=== PATIENT | female | born 1945 | race Caucasian/White ===

== ENCOUNTER → 2017-09-11 | Outpatient (CLI) | payer MEDICARE, BC ==
[~2017-09-11] MED LIST: AMLO1TAB78 PO; ANAS1TAB35 PO; ASCO-188 PO; BONIVA PO; CHOL400T55; DEN60I SUBQ; DIAZ-308 PO; GLUC-232 PO; HYDR-4309 PO; IBAN150T6 PO; MULT-1176 PO; ORP100 PO; RABE20TA33 PO
--- NOTE | 2017-09-11 10:33 | RADIOLOGY IMAGING REPORT ---
FACILITY: [facility] PATIENT NAME: Erica Howell : 1945 MR: [id number] V: [id number] EXAM DATE: ORDERING PHYSICIAN: RUTH COOPER TECHNOLOGIST: [place] [facility] [place] : 1945 Visit/Account:[id number] Date of Sevice: 09/11/2017 DEXA Scan HISTORY: Postmenopausal osteoporosis. COMPARISON: 2001, 2009, 2011, 2014 and 09/10/2016. HIP: Bone mineral density (BMD) measured in the left femoral neck region correlates with a Z-score of -0.8 and a T-score of -2.4 which is compatible with osteopenia as defined by the World Health Organizatio n. The corresponding risk of fracture in the hip is increased 4-6 times compared with a young adult reference population. This value in the total hip has decreased by 0.7 % since the prior study. More than 5% change is considered significant. Bone mineral density (BMD) measured in the left Femoral Neck region measures 0.711 g/cm2. HIP: Bone mineral density (BMD) measured in the right femoral neck region correlates with a Z-score of -1. 4 and a T-score of -3.0 which is compatible with osteoporosis as defined by the World Health Organiza tion. The corresponding risk of fracture in the hip is increased 8 times compared with a young adult reference population. This value in the total hip has decreased by 1.2 % since the prior study. Mor e than 5% change is considered significant. Bone mineral density (BMD) measured in the right Femoral Neck region measures 0.619 g/cm2. IMPRESSION: 1. Left Femoral Neck: Compatible with osteopenia. There has been no significant change in the bone mineral density since the previous exam. 3. Left Femoral Neck: Bone Mineral Density is 0.711 g/cm2 4. Right Femoral Neck: Compatible with osteoporosis. There has been no significant change in the b one mineral density since the previous exam. 5. Right Femoral Neck: Bone Mineral Density is 0.619 g/cm2 The next DEXA scan of this patient should include the following sites: Bilateral hips. FRAX? WHO Fracture Risk Assessment Tool link: <http://www.shef.ac.uk/FRAX/tool.jsp?locationValue=9> PLEASE NOTE: 1) The World Health Organization defines low BMD as follows: T-score Normal > -1 Osteopenia < -1 and > -2.5 Osteoporosis < -2.5 without fractures Established osteoporosis < -2.5 with fractures 2) In general, you may wish to consider: Diagnosis Treatment Follow-up DEXA Normal BMD Prevention 2-3 years Osteopenia Prevention/therapy 1-2 years Osteoporosis Therapy Yearly 3) Fracture risk estimated from the T-score is more accurate for vertebral fractures (often spontane ous) than for hip fractures. Report Dictated By: Jenny Perla MD at 09/11/2017 10:25 AM Report E-Signed By: Jenny Perla MD at 09/11/2017 10:28 AM WSN:[id number]
== END ==
LOC: RAD 00:28
PROVIDERS: ATTEND Family Medicine
DX: M81.0 Age-related osteoporosis without current pathological fracture (principal)
CPT/HCPCS: 77080

== ENCOUNTER → 2017-10-31 | Outpatient (CLI) | payer MEDICARE, BC ==
--- NOTE | 2017-10-31 13:08 | RADIOLOGY IMAGING REPORT ---
FACILITY: [facility] PATIENT NAME: Erica Howell : 1945 MR: [id number] V: [id number] EXAM DATE: ORDERING PHYSICIAN: SAGE WINTER TECHNOLOGIST: [place] [facility] [place] Patient: Erica Howell : 1945 Visit/Account:[id number] Date of Sevice: 10/31/2017 THORACIC SPINE 2 VIEW HISTORY: Back pain. Postop fusion. COMPARISON: 05/08/2017 FINDINGS: 2 views of the thoracic spine were obtained. Extensive thoracolumbar fusion hardware, incompletely covered on this exam. Visualized hardware appea rs intact. Mild wedging of the T9 vertebral body just above the fusion. IMPRESSION: 1. Multilevel [id number] fusion incompletely covered on this exam. 2. Mild wedging of the T9 vertebral body of uncertain chronicity. Report Dictated By: Hilario Love MD at 10/31/2017 12:59 PM Report E-Signed By: Hilario Love MD at 10/31/2017 1:03 PM WSN:[id number]
== END ==
LOC: RAD 11:59
PROVIDERS: ATTEND Nurse Practitioner Family
DX: M48.54XA Collapsed vertebra, not elsewhere classified, thoracic region, initial encounter for fracture (principal); Z96.7 Presence of other bone and tendon implants
CPT/HCPCS: 72070

== ENCOUNTER → 2017-11-11 | Outpatient (CLI) | payer MEDICARE, BC ==
--- NOTE | 2017-11-11 15:51 | RADIOLOGY IMAGING REPORT ---
[place] [facility] [place] NAME: Erica Howell : 1945 MR: [id number] V: [id number] EXAM DATE: ORDERING PHYSICIAN: SAGE WINTER TECHNOLOGIST: Location: [facility] - [place] Patient: Erica Howell : 1945 Visit/Account:[id number] Date of Sevice: 11/11/2017 Exam type: LUMBAR SPINE 2 OR 3 VIEW History: Postop pain Comparison: Thoracic spine series October 31, 2017 and lumbar spine May 08, 2017. Findings: Compared to the prior lumbar spine series May 08, 2017 there has been marked improvement in the de xtroconvex curvature of the thoracolumbar spine. There are large orthopedic screws traversing both S I joints from a posterior approach. There is a vertical screw from L5 to the sacrum. There is moder ate disc space narrowing L5-S1 There are pedicle screws from S1 to T10 which are incompletely imaged. There are intervertebral support cages at L2-3, L3-4 and L4-5. There suggestion of very mild loss of height of the L2 vertebral body not ideally visualized on the prior study. There are pedicle scre ws IMPRESSION: 1. Extensive postoperative changes of the thoracal lumbar spine with posterior fusion from T10 to th e sacrum as described Report Dictated By: Rosy Gonzalez MD at 11/11/2017 3:39 PM Report E-Signed By: Rosy Gonzalez MD at 11/11/2017 3:46 PM WSN:[id number]
== END ==
LOC: RAD 15:02
PROVIDERS: ATTEND Nurse Practitioner Family
DX: Z96.7 Presence of other bone and tendon implants (principal); M51.17 Intervertebral disc disorders with radiculopathy, lumbosacral region
CPT/HCPCS: 72100

== ENCOUNTER 2018-01-25 07:00 | Emergency (ER) | payer MEDICARE, BC ==
--- NOTE | 2018-01-25 07:07 | ER Report ---
History and Physical Time Seen By MD: 07:06 YVONNE/NIKITA CHIEF COMPLAINT: Chest pain HISTORY OF PRESENT ILLNESS: Patient is a 72-year-old female who presents to the emergency department after experiencing an episode of chest pressure and discomfort with radiation to the neck bilaterally that occurred while at rest this morning at around 6:30. Patient states that she has not experienced this type of discomfort before. It was quite severe at onset describes the character as a pressure sensation that resolved spontaneously on its own. She has not experienced any more episodes since the 1st one this morning. She denies having a racing heart or palpitations. Patient did not take her morning medications this morning. She did have coffee with Hazelnut creamer but nothing else by mouth. Patient is a nonsmoker. She has no prior history of elevated cholesterol. There is a family history of her father with heart disease between the ages of 50 and 60. She denies any infectious symptoms including fevers chills or cough. She denies any shortness of breath. She denies nausea or vomiting. REVIEW OF SYSTEMS: Constitutional: No fever, no chills. Eyes: No discharge. ENT: No sore throat. Cardiovascular: Chest pain, no palpitations Respiratory: No cough, no shortness of breath. Gastrointestinal: No abdominal pain, no vomiting. Genitourinary: No hematuria. Musculoskeletal: History of chronic back pain Skin: No rashes. Neurological: No headache. Allergies: Coded Allergies: bacitracin (Verified Allergy, Mild, 03/24/17) gramicidin D (Verified Allergy, Mild, 03/24/17) neomycin (Verified Allergy, Mild, 03/24/17) polymyxin B (Verified Allergy, Mild, 03/24/17) codeine (Verified Adverse Reaction, Intermediate, HEART RACE, DIZZINESS, ) Home Meds Reported Medications Warfarin Sodium (WARFARIN SODIUM) 5 Mg Tablet, 7.5 MG PO QDAY, TAB 01/25/18 Metoprolol Succinate (METOPROLOL SUCCINATE) 50 Mg Tab.er.24h, 2 TAB PO QDAY, TAB 01/25/18 Diltiazem Hcl (DILTIAZEM 24HR CD) 120 Mg Cap.er.24h, 120 MG PO 01/25/18 Iron Polysaccharides Complex (POLYSACCHARIDE IRON 150) 150 Mg Capsule, 150 MG PO , CAPSULE 01/25/18 Ibandronate Sodium (BONIVA) 150 Mg Tablet, 150 MG PO Q30D 03/24/17 Gluc 2KCL/Chondr/Tammie Hy/Hy Ac (GLUCOSAMINE & CHONDROITIN CAP) 1 Each Capsule, 1 EACH PO, CAPSULE 05/14/16 Cholecalciferol (Vitamin D3) (VITAMIN D) 400 Unit Tablet, 800 05/14/16 Ascorbic Acid (VITAMIN C) 500 Mg Tab.chew, 500 MG PO, TAB.CHEW 05/14/16 Multivits,Ca,Minerals/Iron/Fa (WOMEN'S DAILY CAPLET) 1 Each Tablet, 1 EACH PO 08/02/14 Discontinued Reported Medications Metoprolol Tartrate (METOPROLOL TARTRATE) 100 Mg Tablet, 1 TAB PO QDAY, TAB 01/25/18 Amlodipine/Valsartan/Hctz (EXFORGE HCT 10-320-25 MG TAB) 1 Each Tablet, 1 EACH PO 08/02/14 Past Medical/Surgical History Past medical history significant for back pain, arthritis, history of breast cancer, osteopenia, hypertension history of postmenopausal bleeding status post hysteroscopy. History of postoperative atrial fibrillation after a T12-S1 fusion with rods. She is currently on rate controlling medications has not had any experience of atrial fibrillation since her postoperative period Hx Smoking: No Smoking Status: Never Smoker Hx Substance Use Disorder: No Hx Alcohol Use: No Constitutional Vital Sign - Last 24 Hours 01/25/18 01/25/18 01/25/18 01/25/18 07:00 07:06 07:06 07:15 Temp 98.1 Pulse ??? 101 82 Resp 18 12 B/P (MAP) 178/84 (115) 178/84 Pulse Ox 94 95 O2 Delivery Bi-PAP 01/25/18 01/25/18 01/25/18 01/25/18 07:30 07:45 08:00 08:15 Pulse 71 66 64 68 Resp 8 16 18 16 B/P (MAP) 158/87 (110) 164/80 (108) Pulse Ox 95 96 96 94 01/25/18 01/25/18 01/25/18 01/25/18 08:30 08:45 08:50 09:05 Pulse 63 ? 64 Resp 8 0 B/P (MAP) 152/73 (99) Pulse Ox 95 92 6/25/18 6/25/18 6/25/18 6/25/18 09:20 09:30 09:35 10:00 Pulse 66 65 Resp 16 18 B/P (MAP) 152/77 (102) 165/79 (107) Pulse Ox 93 89 01/25/18 01/25/18 01/25/18 01/25/18 10:05 10:20 10:30 10:35 Pulse ??? 69 75 Resp 17 8 B/P (MAP) 149/78 (101) Pulse Ox 97 89 01/25/18 01/25/18 01/25/18 01/25/18 10:40 11:00 11:10 11:30 Pulse 81 ??? Resp 14 17 B/P (MAP) 123/105 (111) 152/68 (96) Pulse Ox 90 96 01/25/18 01/25/18 01/25/18 01/25/18 11:40 11:42 11:55 12:00 Pulse 74 ??? Resp 12 B/P (MAP) 146/70 (95) ???/??? (1665) Pulse Ox 89 01/25/18 12:10 Pulse ??? Physical Exam General/Constitutional: Patient is awake, alert, nontoxic and in no acute respiratory distress. Head: Normocephalic and atraumatic. Eyes: Conjunctival clear, Pupils are equal and reactive to light. Extraocular muscles are intact and symmetrical. Sclera are clear and anicteric. Ears:External canals are clear. Tympanic membranes are clear with normal landmarks and light reflex. Nares: No rhinorrhea or bleeding. Turbinates are pink and moist. Oropharyngeal: Mucous membranes are moist. There is no pharyngeal erythema or exudate. There are no palatal petechiae. Uvula is midline and symmetrical. Neck: Supple, no adenopathy. Cardiovascular: Heart is regular rate and rhythm without audible murmurs, rubs or gallops. Pulmonary: Lungs are clear to auscultation bilaterally. There are no wheezes, rales, or rhonchi. Chest rise is symmetrical Abdomen: Soft, nontender, no guarding or peritoneal signs. Extremities: No gross deformities, No peripheral cyanosis. Able to move all 4 extremities. Neuro: Alert and oriented X3, Skin: No rashes, skin is warm dry and well perfused. Medical Decision Making Data Points Result Diagram: 01/25/18 0715 01/25/18 0715 Laboratory Hematology Test 01/25/18 07:15 01/25/18 07:41 01/25/18 11:04 Red Blood Count 4.91 M/uL (4.17-5.56) Mean Corpuscular Volume 93.4 fL (80.0-96.0) Mean Corpuscular Hemoglobin 31.2 pg (26.0-33.0) Mean Corpuscular Hemoglobin Concent 33.4 g/dL (32.0-36.0) Red Cell Distribution Width 15.1 % (11.5-14.5) Mean Platelet Volume 7.3 fL (7.2-11.1) Neutrophils (%) (Auto) 66.1 % (39.4-72.5) Lymphocytes (%) (Auto) 21.6 % (17.6-49.6) Monocytes (%) (Auto) 8.1 % (4.1-12.4) Eosinophils (%) (Auto) 2.2 % (0.4-6.7) Basophils (%) (Auto) 2.0 % (0.3-1.4) Nucleated RBC Relative Count (auto) 0.0 /100WBC Neutrophils # (Auto) 5.0 K/uL (2.0-7.4) Lymphocytes # (Auto) 1.6 K/uL (1.3-3.6) Monocytes # (Auto) 0.6 K/uL (0.3-1.0) Eosinophils # (Auto) 0.2 K/uL (0.0-0.5) Basophils # (Auto) 0.2 K/uL (0.0-0.1) Nucleated RBC Absolute Count (auto) 0.00 K/uL Sodium Level 142 mmol/L (137-145) Potassium Level 4.0 mmol/L (3.5-5.0) Chloride Level 102 mmol/L (98-107) Carbon Dioxide Level 28 mmol/L (22-31) Blood Urea Nitrogen 14 mg/dl (7-18) Creatinine 0.80 mg/dl (0.52-1.04) Glomerular Filtration Rate Calc > 60.0 Random Glucose 101 mg/dl (75-110) Calcium Level 9.2 mg/dl (8.4-10.2) Total Bilirubin 0.3 mg/dl (0.2-1.3) Aspartate Amino Transf (AST/SGOT) 23 U/L (0-35) Alanine Aminotransferase (ALT/SGPT) 26 U/L (0-56) Alkaline Phosphatase 119 U/L (0-126) B-Type Natriuretic Peptide 132 pg/ml (0-100) Total Protein 7.3 g/dl (6.3-8.2) Albumin 4.2 g/dl (3.5-5.0) Prothrombin Time 21.6 seconds (12.0-14.4) Prothromb Time International Ratio 1.83 Activated Partial Thromboplast Time 37 seconds (23-35) Troponin I < 0.012 ng/ml Chemistry Test 01/25/18 07:15 01/25/18 07:41 01/25/18 11:04 White Blood Count 7.6 k/uL (4.5-11.0) Red Blood Count 4.91 M/uL (4.17-5.56) Hemoglobin 15.3 g/dL (12.0-16.0) Hematocrit 45.8 % (34.0-47.0) Mean Corpuscular Volume 93.4 fL (80.0-96.0) Mean Corpuscular Hemoglobin 31.2 pg (26.0-33.0) Mean Corpuscular Hemoglobin Concent 33.4 g/dL (32.0-36.0) Red Cell Distribution Width 15.1 % (11.5-14.5) Platelet Count 323 K/uL (150-450) Mean Platelet Volume 7.3 fL (7.2-11.1) Neutrophils (%) (Auto) 66.1 % (39.4-72.5) Lymphocytes (%) (Auto) 21.6 % (17.6-49.6) Monocytes (%) (Auto) 8.1 % (4.1-12.4) Eosinophils (%) (Auto) 2.2 % (0.4-6.7) Basophils (%) (Auto) 2.0 % (0.3-1.4) Nucleated RBC Relative Count (auto) 0.0 /100WBC Neutrophils # (Auto) 5.0 K/uL (2.0-7.4) Lymphocytes # (Auto) 1.6 K/uL (1.3-3.6) Monocytes # (Auto) 0.6 K/uL (0.3-1.0) Eosinophils # (Auto) 0.2 K/uL (0.0-0.5) Basophils # (Auto) 0.2 K/uL (0.0-0.1) Nucleated RBC Absolute Count (auto) 0.00 K/uL Glomerular Filtration Rate Calc > 60.0 Calcium Level 9.2 mg/dl (8.4-10.2) Total Bilirubin 0.3 mg/dl (0.2-1.3) Aspartate Amino Transf (AST/SGOT) 23 U/L (0-35) Alanine Aminotransferase (ALT/SGPT) 26 U/L (0-56) Alkaline Phosphatase 119 U/L (0-126) B-Type Natriuretic Peptide 132 pg/ml (0-100) Total Protein 7.3 g/dl (6.3-8.2) Albumin 4.2 g/dl (3.5-5.0) Prothrombin Time 21.6 seconds (12.0-14.4) Prothromb Time International Ratio 1.83 Activated Partial Thromboplast Time 37 seconds (23-35) Troponin I < 0.012 ng/ml Coagulation Test 01/25/18 07:41 Prothrombin Time 21.6 seconds Prothromb Time International Ratio 1.83 Activated Partial Thromboplast Time 37 seconds EKG/Imaging EKG Interpretation EKG shows sinus rhythm with occasional atrial premature complexes ventricular rate is 77 bpm. There are no ST segment or T-wave abnormalities. This EKG was compared to one from 03/27/2017 no changes were noted. Monitor Interpretation: Normal Sinus Rhythm Imaging FACILITY: [facility] - [place] PATIENT NAME: Erica Howell : 1945 MR: [id number] V: [id number] EXAM DATE: ORDERING PHYSICIAN: JULISSA AQUINO TECHNOLOGIST: Location: [facility] [place]: Erica Howell : 1945 Visit/Account:[id number] Date of Sevice: 01/25/2018 CHEST PA AND LAT HISTORY: Chest pain. COMPARISON: Thoracic spine radiographs dated 10/31/2017. FINDINGS: PA and lateral chest x-ray. Lines/tubes: None. Lungs/pleura: Negative. Heart: Negative. Mediastinum: Negative. Bony structures/body wall: Partially imaged thoracolumbar fusion hardware. Stable mild to moderate compression fracture just above the fusion hardware. Left axillary surgical clips. No acute osseous findings. IMPRESSION: No acute cardiopulmonary process. Report Dictated By: Jay Johnson MD at 01/25/2018 8:13 AM Report E-Signed By: Jay Johnson MD at 01/25/2018 8:15 AM WSN:[id number] ED Course/Re-evaluation Clinical Indication for ER IV: IV Access ED Course 01/25/2018 7:30:35 am and at this time will be to perform a cardiac workup with a delta troponin at 4 hour window. Patient is currently symptom free. We' ll give aspirin. EKG appears unremarkable and unchanged from 2017. Re-evaluation 01/25/2018 11:37:26 am repeat dull troponin also negative. Patient counseled to follow up with Dr. Carter as scheduled and to resume all current medications. Decision to Disposition Date: Jan 25, 2018 Decision to Disposition Time: 11:37 Depart Departure Latest Vital Signs Vital Signs Date Time Temp Pulse Resp B/P (MAP) Pulse Ox O2 Delivery O2 Flow Rate FiO2 01/25/18 12:10 ??? 01/25/18 12:00 ???/??? (1665) 01/25/18 11:40 12 89 01/25/18 07:06 98.1 Bi-PAP Impression: Primary Impression: Non-cardiac chest pain Condition: Improved Disposition: HOME OR SELF-CARE Referrals: RUTH COOPER DO (PCP) 2 Days if symptoms persist Patient Instructions: Noncardiac Chest Pain (ED) Additional Instructions: Follow-up with Dr. Carter as scheduled. Continue all your outpatient medications as directed JULISSA AQUINO MD Jan 25, 2018 07:06
[2018-01-25] MEDS ORDERED: ASPIRIN 81 MG CHEW PO ONE (07:10)
--- NOTE | 2018-01-25 07:18 | EKG ---
FACILITY: [facility] PATIENT NAME: KULDIP DOVE : [id number] MR: [id number] V: [id number] EXAM DATE: ORDERING PHYSICIAN: JULISSA AQUINO TECHNOLOGIST: EVONNE Newman Reason : Blood Pressure : / mmHG Vent. Rate : 077 BPM Atrial Rate : 077 BPM P-R Int : 146 ms QRS Dur : 082 ms QT Int : 380 ms P-R-T Axes : 068 058 052 degrees QTc Int : 430 ms Sinus rhythm with premature atrial complexes Otherwise normal ECG When compared with ECG of 27-MAR-2017 08:20, premature atrial complexes are now present Confirmed by SOWMYA VELOZ ([id number]) on 01/25/2018 10:22:56 AM Referred By: KENIA Confirmed By:SOWMYA VELOZ
[2018-01-25 07:24] LABS: PLATELET COUNT, AUTOMATED 323 K/uL (150-450)
[2018-01-25] MEDS ORDERED: METO-257 PO (07:31)
[2018-01-25] MEDS ORDERED: IRON150C19 PO (07:31)
[2018-01-25] MEDS ORDERED: DILT120C18 PO (07:31)
[2018-01-25 07:57] LABS: INR 1.83
[2018-01-25] MEDS ORDERED: METO50TA19 PO (08:12)
[2018-01-25] MEDS ORDERED: WARF5TAB23 PO (08:12)
--- NOTE | 2018-01-25 08:19 | RADIOLOGY IMAGING REPORT ---
[place] [facility] [place] NAME: Erica Howell : 1945 MR: [id number] V: [id number] EXAM DATE: ORDERING PHYSICIAN: JULISSA AQUINO TECHNOLOGIST: Location: [facility] - [place], [place] Patient: Erica Howell : 1945 Visit/Account:[id number] Date of Sevice: 01/25/2018 CHEST PA AND LAT HISTORY: Chest pain. COMPARISON: Thoracic spine radiographs dated 10/31/2017. FINDINGS: PA and lateral chest x-ray. Lines/tubes: None. Lungs/pleura: Negative. Heart: Negative. Mediastinum: Negative. Bony structures/body wall: Partially imaged thoracolumbar fusion hardware. Stable mild to moderate c ompression fracture just above the fusion hardware. Left axillary surgical clips. No acute osseous fi ndings. IMPRESSION: No acute cardiopulmonary process. Report Dictated By: Jay Johnson MD at 01/25/2018 8:13 AM Report E-Signed By: Jay Johnson MD at 01/25/2018 8:15 AM WSN:[id number]
== END 2018-01-25 12:15 | disposition home or self-care (01) ==
LOC: ER 07:12
DX: R07.89 Other chest pain (principal)
CPT/HCPCS: 36415; 71046; 83880; 84484; 85025; 85610; 85730; 93005; 99283; A9270; 82040; 82247; 82310; 82374; 82435; 82565; 82947; 84075; 84132; 84155; 84295; 84450; 84460; 84520

== ENCOUNTER → 2018-03-24 | Outpatient (CLI) | payer MEDICARE, BC ==
[~2018-03-24] MED LIST changes: +DILT120C18 PO; +IRON150C19 PO; +METO-257 PO; +METO50TA19 PO; +WARF5TAB23 PO
--- NOTE | 2018-03-24 14:52 | RADIOLOGY IMAGING REPORT ---
FACILITY: [facility] PATIENT NAME: KULDIP DOVE : [id number] MR: [id number] V: [id number] EXAM DATE: ORDERING PHYSICIAN: RUTH COOPER TECHNOLOGIST: Nicolasa Redding PROCEDURE:BILATERAL DIAGNOSTIC DIGITAL MAMMOGRAM WITH CAD ASSISTED INTERPRETATION & 3D TOMOSYNTHESIS COMPARISON:Prior mammograms 03/19/17, 03/11/16, 03/08/15, 02/20/14, 02/17/13. INDICATIONS:HX OF LEFT BREAST CANCER FINDINGS: Small amount of fibroglandular tissue is seen throughout the breasts. The parenchymal pattern has remained stable allowing for difference in mammographic technique & patient positioning. Surgical clip in area of architectural distortion from previous lumpectomy in approximate 12 o'clock position of the Left breast is again seen. There is no demonstration of malignant appearing mass, malignant appearing calcifications or other secondary sign of malignancy in either breast. DIAGNOSTIC CATEGORY 2--BENIGN FINDING. RECOMMENDATIONS: ROUTINE MAMMOGRAM AND CLINICAL EVALUATION. IMPRESSION: BIRADS 2: Benign finding. No significant abnormality is seen. Dictated by: Rosy Gonzalez M.D. on 03/24/2018 at 11:15 Transcribed by: NAVIN on 03/24/2018 at 11:32 Approved by: Rosy Gonzalez M.D. on 03/24/2018 at 14:51 [facility]
== END ==
LOC: MAMO 00:27
PROVIDERS: ATTEND Family Medicine
DX: Z85.3 Personal history of malignant neoplasm of breast (principal)
CPT/HCPCS: 77062; 77066

== ENCOUNTER → 2018-08-24 | Outpatient (CLI) | payer MEDICARE, BC ==
[~2018-08-24] MED LIST changes: +DILT120C12 PO; -DILT120C18 PO; -HYDR-4309 PO; +HYDR-653 PO
[2018-08-24 04:39] LABS: PLATELET COUNT, AUTOMATED 302 K/uL (150-450)
== END ==
LOC: LAB 04:06
PROVIDERS: ATTEND Family Medicine
DX: D50.9 Iron deficiency anemia, unspecified (principal)
CPT/HCPCS: 36415; 83540; 85025

== ENCOUNTER → 2018-09-02 | Outpatient (CLI) | payer MEDICARE, BC ==
[2018-09-02 05:25] LABS: LDL CHOLESTEROL 129 mg/dl
== END ==
LOC: LAB 04:27
PROVIDERS: ATTEND Family Medicine
DX: E55.9 Vitamin D deficiency, unspecified (principal); I10 Essential (primary) hypertension
CPT/HCPCS: 36415; 82306; 82310; 82374; 82435; 82465; 82565; 82947; 83718; 84132; 84295; 84478; 84520

== ENCOUNTER → 2018-09-13 | Outpatient (CLI) | payer MEDICARE, BC ==
--- NOTE | 2018-09-13 16:55 | RADIOLOGY IMAGING REPORT ---
FACILITY: [facility] - [place] PATIENT NAME: Erica Howell : 1945 MR: [id number] V: [id number] EXAM DATE: ORDERING PHYSICIAN: RUTH COOPER TECHNOLOGIST: [place] [facility] [place]: Erica Howell : 1945 Visit/Account:[id number] Date of Sevice: 09/13/2018 DEXA Scan 09/13/2018 2:00 PM HISTORY: Postmenopausal. Osteoporosis. Comparison: 09/11/2017 HIP: Bone mineral density (BMD) measured in the Left total hip region correlates with a Z-score -0.9 and a T-score of -2.3 which is severely osteopenic as defined by the World Health Organization. The corre sponding risk of fracture in the hip is increased 4-6 times compared with a young adult reference pop ulation. This value has decreased by 1.2 % since the prior study. More than 5% change is considered significant. Bone mineral density (BMD) measured in the Femoral Neck region measures 0.639 g/cm2. T-score is -2.9 . FOREARM: The bone mineral density (BMD) measured in the ULTRADISTAL left forearm, where trabecular bone predom inates, correlates with a Z-score of -0.8 and a T-score of -3.1 which is osteoporotic as defined by t he World Health Organization. The corresponding risk of fracture in the distal forearm is increased over 8 times compared with a young adult reference population. The bone mineral density (BMD) in the MIDSHAFT of the forearm, where cortical bone predominates, miroslava elates with a T-score of -4.0 which is osteoporotic as defined by the World Health Organization. The corresponding risk of fracture in the midshaft of the forearm is increased over 8 times compared with a young adult reference population. Prior study did not include comparison forearm data. IMPRESSION: 1. Left Forearm: Osteoporosis. Prior study does not have forearm comparison data. 2. Left Total Hip: Severe osteopenia. There has been No significant change in the bone mineral dens ity since the previous exam. 3. Femoral Neck: Bone Mineral Density is 0.639 g/cm2. Osteoporosis. The next DEXA scan of this patient should include the following sites: Forearm and hip. FRAX? WHO Fracture Risk Assessment Tool link: <http://www.shef.ac.uk/FRAX/tool.jsp?[email or web address]> PLEASE NOTE: 1) The World Health Organization defines low BMD as follows: T-score Normal > -1 Osteopenia < -1 and > -2.5 Osteoporosis < -2.5 without fractures Established osteoporosis < -2.5 with fractures 2) In general, you may wish to consider: Diagnosis Treatment Follow-up DEXA Normal BMD Prevention 2-3 years Osteopenia Prevention/therapy 1-2 years Osteoporosis Therapy Yearly 3) Fracture risk estimated from the T-score is more accurate for vertebral fractures (often spontane ous) than for hip fractures. Report Dictated By: Zach Schneider MD at 09/13/2018 4:47 PM Report E-Signed By: Zach Schneider MD at 09/13/2018 4:51 PM ENRIQUETAN:[place]
== END ==
LOC: RAD 07:00
PROVIDERS: ATTEND Family Medicine
DX: M81.0 Age-related osteoporosis without current pathological fracture (principal); M85.88 Other specified disorders of bone density and structure, other site
CPT/HCPCS: 77080

== ENCOUNTER → 2018-11-25 | Outpatient (CLI) | payer MEDICARE, BC ==
[~2018-11-25] MED LIST changes: +IBAN150T16 PO; -IBAN150T6 PO
[2018-11-25 13:04] LABS: PLATELET COUNT, AUTOMATED 330 K/uL (150-450)
== END ==
LOC: LAB 12:40
PROVIDERS: ATTEND Family Medicine
DX: D50.9 Iron deficiency anemia, unspecified (principal)
CPT/HCPCS: 36415; 83540; 85025